=== PATIENT | female | born 1945 | race Caucasian/White ===

== ENCOUNTER 2019-09-24 23:37 | Emergency (ER) | payer MEDICARE, OTHER ==
[~2019-09-24] VITALS: Ht 154.9 cm; Wt 64.4 kg
[~2019-09-24 23:37] MED LIST: ACETAMINOPHEN325 M1; AMARYL4 MG PO; AMBIEN 5 MG TABL5 M1; ASPIR 8181 MG PO; ASPIRIN325; ATENOLOL 50MG T50 M1 PO; CIPRO250 M2 PO; CIPRO500 MG PO; COLACE 100 MG100 MG PO; CYMBALTA20 MG PO; CYMBALTA30 MG PO; ESTRADIOL-NORE1 EAC1 PO; ETODOLAC 400 M400 M1 PO; FLEXERIL PO; GLIPIZIDE 10 MG10 M1 PO; HYDROCODONE-AP1 EAC6 PO; HYDROXYZINE HCL25 M1 PO; HYZAAR 100-12.1 EACH; INVOKAMET 150-1 EACH PO; INVOKANA300 MG PO; LOSARTAN-HCTZ1 EAC1 PO; LOSARTAN-HCTZ1 EACH PO; METAMUCIL0.52 GM; MIMVEY 1-0.5 M1 EACH PO; MIMVEY LO 0.5-1 EACH PO; MOM; NORCO 5-325 TA1 EACH PO; OMEPRAZOLE40 MG PO; OXYCODONE HCL 55 MG; PERCOCET 7.5-31 EACH; PRILOSEC 20 MG20 MG PO; PROPOXY-N/APAP1 TAB PO; SINGULAIR 10 MG10 M1 PO; SYNTHROID PO; TOPAMAX 25 MG T25 M1 PO; TOUJEO SOL300 UNIT/1 SQ; TOUJEO SOL300 UNIT/1 SUBQ; TRUJEO SQ; WELLBUTRIN 75 M75 M1 PO; WELLBUTRIN SR150 MG PO
[2019-09-25] MEDS ORDERED: EXCEDRIN MIGRA1 EAC1 PO (00:04)
[2019-09-25] MEDS ORDERED: CITRUCEL479 GM PO (00:04)
[2019-09-25] MEDS ORDERED: PROZAC20 MG PO (00:05)
[2019-09-25] MEDS ORDERED: NEURONTIN 300M300 M2 PO (00:05)
[2019-09-25] MEDS ORDERED: PROBIOTIC1 EAC7 PO (00:05)
[2019-09-25] MEDS ORDERED: TRESIBA100 UNIT/1 SUBQ (00:06)
[2019-09-25] MEDS ORDERED: MICARDIS40 MG PO (00:07)
[2019-09-25] MEDS ORDERED: NOVOLOG100 UNIT/1 SUBQ (00:07)
[2019-09-25 00:31] LABS: ABSOLUTE BASOPHILS 0.1 thou/uL (0.0-0.2); ABSOLUTE EOSINOPHILS 0.4 thou/uL (0.0-0.7); ABSOLUTE LYMPHOCYTES 3.4 thou/uL (0.8-5.3); ABSOLUTE MONOCYTES 0.7 thou/uL (0.0-1.2); ABSOLUTE NEUTROPHILS 6.2 thou/uL (1.6-8.1); BASOPHILS 0.5 %; EOSINOPHILS 3.6 %; HEMATOCRIT 35.9 % (37.0-47.0); HEMOGLOBIN 12.5 gm/dL (12.0-15.0); LYMPHOCYTES 31.4 %; MCH 35.3 pg (26.0-34.0); MCHC 34.8 g/dL (28.0-37.0); MCV 101.4 fL (80.0-100.0); MONOCYTES 6.7 %; MPV 7.6 fl. (7.2-11.1); NUCLEATED RBCS 0 /100WBC; PLATELET COUNT* 273 thou/uL (150-400); POLYS 57.8 %; RBC 3.54 mil/uL (4.20-5.00); RDW-CV 12.7 % (10.5-14.5); WBC 10.8 thou/uL (4.0-11.0)
[2019-09-25 00:43] LABS: CALCIUM 8.3 mg/dL (8.5-10.1); POTASSIUM 3.6 mmol/L (3.5-5.1)
[2019-09-25 00:48] LABS: ALBUMIN 3.4 g/dL (3.4-5.0); TOTAL BILIRUBIN 0.3 mg/dL (<0.1-1.0); TOTAL PROTEIN 6.9 g/dL (6.4-8.2)
[2019-09-25 03:38] LABS: URINE BILIRUBIN NEGATIVE (Negative); URINE BLOOD TRACE (Negative); URINE COLOR YELLOW; URINE GLUCOSE-RANDOM 3+ (Negative); URINE KETONES NEGATIVE (Negative); URINE LEUKOCYTES-REFLEX 1+ (Negative); URINE NITRITE-REFLEX NEGATIVE (Negative); URINE PROTEIN NEGATIVE (Negative); URINE SPECIFIC GRAVITY 1.015 (1.005-1.030); URINE UROBILINOGEN 0.2 E.U./dl (0.2-1.0)
[2019-09-25 03:39] LABS: URINE CLARITY SL CLOUDY
[2019-09-25 03:54] LABS: BACTERIA-REFLEX >30 Many /HPF (None Seen); CASTS None Seen /LPF (None Seen); CRYSTALS None Seen /LPF (None Seen); MUCUS 4-6 Moderate strn/LPF (None Seen); SQUAMOUS 4-10 Moderate /LPF (0-3); TRANSITIONAL EPITHEL CELL 0-3 Few /LPF (None Seen); URINE RBC 3-10 Few /HPF (0-2); URINE WBC-REFLEX >25 Many /HPF (0-5); WBC CLUMPS Few (None Seen)
[2019-09-25] MEDS ORDERED: KEFLEX500 M2 PO (07:00)
[2019-09-25 07:25] VITALS: BP 134/66
--- NOTE | 2019-09-26 16:43 | EKG ---
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[id number] Requested By: Stephanie Copeland Order Number: [id number] MD: Khanh Gaxiola Measurements Intervals [place] Rate: 75 P: 14 CO: 156 QRS: -66 QRSD: 103 T: 10 QT: 454 QTc: 508 Interpretive Statements Sinus rhythm Left anterior fascicular block Prolonged QT interval Compared to ECG 10/03/2015 10:39:54 significant changes not noted Electronically Signed On 09-26-2019 16:42:39 MAGISTRATE ASSISTANT by Khanh Gaxiola [email or web address] <ELECTRONICALLY SIGNED> By: Khanh Gaxiola MD, [facility] 09/26/19 1642 0034 Khanh Gaxiola MD, FAC /EPI
== END 2019-09-25 07:56 | disposition home or self-care (01) ==
LOC: M.ERS 23:37
PROVIDERS: Emergency Medicine
DX: T38.3X1A Poisoning by insulin and oral hypoglycemic [antidiabetic] drugs, accidental (unintentional), initial encounter (principal); E11.649 Type 2 diabetes mellitus with hypoglycemia without coma; K21.9 Gastro-esophageal reflux disease without esophagitis; E03.9 Hypothyroidism, unspecified; G47.30 Sleep apnea, unspecified; Z79.4 Long term (current) use of insulin; Y92.89 Other specified places as the place of occurrence of the external cause

== ENCOUNTER → 2019-10-01 | Outpatient (CLI) | payer MEDICARE, OTHER ==
[~2019-10-01] MED LIST changes: +CITRUCEL479 GM PO; +EXCEDRIN MIGRA1 EAC1 PO; +KEFLEX500 M2 PO; +MICARDIS40 MG PO; +NEURONTIN 300M300 M2 PO; +NOVOLOG100 UNIT/1 SUBQ; +PROBIOTIC1 EAC7 PO; +PROZAC20 MG PO; +TRESIBA100 UNIT/1 SUBQ
== END ==
LOC: M.RAD 11:00
DX: Z12.31 Encounter for screening mammogram for malignant neoplasm of breast (principal)

== ENCOUNTER → 2020-09-18 | Outpatient (CLI) | payer MEDICARE, OTHER | LOC: M.RAD 13:00 | PROVIDERS: ATTEND Family Medicine | DX: Z12.31 Encounter for screening mammogram for malignant neoplasm of breast (principal) ==

== ENCOUNTER → 2021-09-19 | Outpatient (CLI) | payer MEDICARE, OTHER | LOC: M.RAD 12:47 | PROVIDERS: ATTEND Family Medicine | DX: Z12.31 Encounter for screening mammogram for malignant neoplasm of breast (principal) ==